=== PATIENT | female | born 1950 | race Caucasian/White ===

== ENCOUNTER 2016-10-09 12:04 | Day surgery (SDC) | payer BC ==
[~2016-10-09 12:04] MED LIST: CLINDAMYCIN PHOSPHATE 600 MG in DEXTROSE 5 % IN WATER 100 ML IV PRN; RINGERS SOLUTION,LACTATED 1,000 ML IV PRN
--- OUTSIDE RECORDS SUMMARY | 2016-10-09 12:07 | XMS REPORT | Continuity of Care Document ---
:1950 Author Organization [facility] ([facility]) Address [address] [place] [address] Phone [phone] Care Team Providers Name Role Phone Unavailable Primary Care Provider Unavailable Source Comments This disclosure is being made pursuant to the Care Everywhere program, applicable federal and state laws, and may not contain all informaitonavailable regarding this patient.[facility] ([facility]) Active Allergies and Adverse Reactions Allergen Noted Date Severity Reactions Comments Penicillins Unknown Pt reports that she had a reaction as a child but she does not know what the exact reaction was. Current Medications Not on file Active Problems Not on file Social History Tobacco Use Types Packs/Day Years Used Date Never Assessed Last Filed Vital Signs Vital Sign Reading Time Taken Blood Pressure - - Pulse - - Temperature - - Respiratory Rate - - Height - - Weight 100.2 kg (220 lb 14.4 oz) 05/05/2001 1:34 PM [employer] Body Mass Index - - Oxygen Saturation - - Plan of Care Health Maintenance Due Date Last Done Comments HCV Screening 1950 Hepatitis B Vaccine (1 of 3 - Primary Series) 1950 Tdap Vaccine 01/24/1963 Lipid Disorder Screening 01/24/1970 Td Vaccine 01/24/1970 Cervical Cancer Screening 01/24/1982 Mammogram 1992 Colonoscopy 01/24/2002 Zoster Vaccine 2012 Influenza Vaccine: Seasonal (#1) 12/05/2015 Results from Last 3 Months Not on file
[2016-10-09] MEDS ORDERED: RINGERS SOLUTION,LACTATED 1,000 ML IV ONE ×2 (12:51→15:03)
[2016-10-09] MEDS ORDERED: BUPIVACAINE HCL/EPINEPHRINE 50 ML VIAL IJ ONE (13:15)
[2016-10-09] MEDS ORDERED: BUPIVACAINE HCL 50 ML VIAL IJ ONE (13:15)
[2016-10-09] MEDS ORDERED: DEXAMETHASONE SOD PHOSPHATE 4 MG/ML VIAL IJ ONE (14:32)
[2016-10-09] MEDS ORDERED: PROCHLORPERAZINE EDISYLATE 5 MG/ML VIAL IM PRN (15:42)
[2016-10-09] MEDS: HYDROcodone/ACETAMINOPHEN 1 EACH TABLET PO PRN ×2 (16:25→16:27)
[2016-10-09 17:22] VITALS: BP 134/62
== END 2016-10-09 12:05 | disposition home or self-care (01) ==
LOC: AMB 12:04
PROVIDERS: ATTEND Podiatrist
PROC: 0QBN0ZZ Excision of Right Metatarsal, Open Approach (ICD-10-PCS; 2016-10-09)
PROC: 0QBP0ZZ Excision of Left Metatarsal, Open Approach (ICD-10-PCS; principal; 2016-10-09 13:35)
DX: M21.612 Bunion of left foot (principal); M21.611 Bunion of right foot; E11.9 Type 2 diabetes mellitus without complications; I10 Essential (primary) hypertension; E78.00 Pure hypercholesterolemia, unspecified; E03.9 Hypothyroidism, unspecified; K21.9 Gastro-esophageal reflux disease without esophagitis; M19.90 Unspecified osteoarthritis, unspecified site; Z87.891 Personal history of nicotine dependence; Z68.41 Body mass index [BMI] 40.0-44.9, adult